=== PATIENT | female | born 1935 | race Caucasian/White ===

== ENCOUNTER 2024-09-05 20:59 | Emergency (ER) | payer OTHER, SELFPAY ==
--- NOTE | ~2024-09-05 | CT_ITS ---
CLINICAL HISTORY: head injury CT head without contrast Comparison: None Findings: Scattered subcortical and periventricular hypoattenuation, likely in keeping with chronic small vessel ischemic disease. Parenchymal volume loss with compensatory prominence of the ventricles and CSF spaces. No acute territorial infarction, intracranial hemorrhage, midline shift or hydrocephalus. Atrophy of the right temporal pole with ex vacuo dilatation of the right lateral ventricle. Empty sella is demonstrated, nonspecific. Mineralization in the basal ganglia minimal streaky calcifications along the bifrontal regions of the centrum semiovale. There is no sinus or mastoid fluid. Right lens extraction. Tortuosity of the optic nerves, nonspecific. Small left frontal scalp hematoma. No skull fracture. IMPRESSION: 1. No acute intracranial findings. 2. Additional findings as described. This document has been electronically signed by: Chong Hernandez MD on 09/05/2024 22:13:19
--- NOTE | ~2024-09-05 | CT_ITS ---
CLINICAL HISTORY: head injury CT cervical spine without contrast Comparison: None Findings: Reversal of the cervical lordosis. Osteopenia. Anterolisthesis at C2-C3, C3-C4 and C7-T1. Multilevel spondylosis with osteophytosis, uncovertebral hypertrophy, facet arthropathy and degenerative disc disease. Diffuse spinal canal narrowing, for example moderate at C6-C7 with severe bilateral foraminal stenoses, left worse than right. Degenerative changes along the right atlantodental interval with bony remodeling and calcified retro dental pannus, series 11, image 56. No acute fracture. No cervical fluid collections or masses. Calcification along the ligamentum flavum diffusely throughout. Scattered calcification along the PLL. Biapical pleural nodularity with tiny bilateral pulmonary nodules measuring no more than 5 mm. Per Fleischner criteria: Low-risk patients: No routine follow-up required. High-risk patients: Optional CT at 12 months. IMPRESSION: 1. Chronic changes without acute cervical spine fracture. 2. Additional findings as described. This document has been electronically signed by: Chong Hernandez MD on 09/05/2024 22:14:26
[2024-09-05 21:04] VITALS: BP 130/73; PULSE 78; RESP 18; TEMP 36.4; O2SAT 99; BMI 18.3
[2024-09-05 23:12] VITALS: BP 136/70; PULSE 71; RESP 16; TEMP 36.4; O2SAT 99
[2024-09-05 23:55] LABS: Appearance Urine Clear; Color Urine Yellow; Glucose Urine UA Negative (Negative); Leukocyte Esterase Urine Small (1+) (Negative); Nitrite Urine Negative (Negative); PH 5.5 (5.0-9.0); Specific Gravity - Urine >= 1.030 (1.005-1.025); UMIC TRIGGER UACC YES; Urine Blood Negative (Negative); Urine Ketones Trace mg/dL (Negative); Urine Protein Trace mg/dL (Neg-Trace)
[2024-09-05 23:57] LABS: Bacteria Urine None Seen (None Seen); Hyaline Casts Urine 0-2 /LPF (0-2); RBC Urine 0-2 /HPF (0-2); Squamous Epithelial Cell Urine 0-2 /HPF (0-2); UACC Culture Trigger YES
--- NOTE | 2024-09-06 00:23 | PC.NURSE ---
pt seen by provider, ua collected and sent.
--- NOTE | 2024-09-06 00:30 | ED_ITS ---
HPI - Head Injury General Chief complaint: Head Injury Stated complaint: fell hit head 09/05 Time Seen by Provider: 09/05/24 23:27 Source: patient and family Mode of arrival: ambulatory Limitations: no limitations History of Present Illness ED Provider: Dr. Domitila Rodriguez HPI Narrative: patient comes to the emergency room complaining of a head injury. According to the patient's family, patient was trying to sit on her couch, missed and fell on her left side of the body. Patient states that she has mild headache on the left side. Patient has history of dementia and is a poor historian. Patient states that earlier today her neck was hurting but now it is not hurting anymore. According to the patient's daughter, patient's PCP stopped blood thinners over a year ago. After the patient fell, patient's daughter and her run into the room, help her up, patient has been ambulatory and has not had any further complaints other than the localized pain in the head Related Data Allergies Allergy/AdvReac Type Severity Reaction Status Date / Time No Known Allergies Allergy Verified 09/05/24 21:08 Review of Systems Review of Systems: Constitutional : No Weight loss, No Fever, No Chills, No Night Sweats, No Fatigue, No Malaise ENT/Mouth : No Hearing loss, No Ear Pain, No Nasal Congestion, No Sinus Pain, No Hoarseness, No sore throat, No Rhinorrhea, No Swallowing Difficulty Eyes: No Eye Pain, No Swelling, No Redness, No Foreign Body, No Discharge, No Vision Changes Cardiovascular : No Chest Pain, No SOB, No Dyspnea on Exertion, No Orthopnea, No Edema, No Palpitations Respiratory : No Cough, No Sputum, No Wheezing, No Smoke Exposure, No Dyspnea Gastrointestinal : No Nausea, No Vomiting, No Diarrhea, No Constipation, No abdominal Pain, No Hematochezia, No Melena Genitourinary : no irregular bleeding, No Dysuria, No Urinary Frequency, No Hematuria, No Urinary Incontinence, No Urgency, No Flank Pain, No Urinary Flow Changes, No Hesitancy Musculoskeletal : No joint pain, No Myalgias, No Joint Swelling Skin : complaining of a bruise to the left side of the forehead Neuro : No Weakness, No Numbness, No Paresthesias, No Loss of Consciousness, No Dizziness, complaining of left-sided head pain Psych : No Anxiety/Panic, No Depression, No SI/HI/AH/VH, No Social Issues, Heme/Lymph: No Bruising, No Bleeding,No Lymphadenopathy Endocrine : No Polyuria, No Polydipsia, No Temperature Intolerance [facility] Past Medical History Medical History (Updated 09/06/24 @ 00:59 by Domitila Rodriguez MD) Hyperlipidemia Dementia Social History Social History Smoked in Last 30 Days: No Advance Directives: No Do you have a plan to hurt others: No Plan Physical Exam Vital Signs: Vital Signs: Last Vital Signs Temp 97.5 F 09/06/24 00:36 Pulse 71 09/06/24 00:36 Resp 16 09/06/24 00:36 BP 136/70 09/06/24 00:36 Pulse Ox 99 09/06/24 00:36 O2 Del Method Room Air 09/06/24 00:36 BMI result Body Mass Index 18.3 Const: Other: Appearance: Alert. Oriented X2. No acute distress. Eyes: Pupils equal, round and reactive to light. ENT: Pharynx normal. Neck: Normal inspection. Neck supple. No lymph nodes noted. No crepitus, no C- spine tenderness, normal range of motion CVS: Normal heart rate and rhythm. Pulses normal. Normal S1 and S2 Respiratory: No respiratory distress. Breath sounds normal. No Wheezing. No rales Abdomen: Soft and nontender. No rigidity. No distention. Skin: Skin warm and dry. Normal skin color. Normal skin turgor. ecchymosis on the left side of the forehead, no lacerations Extremities: No lower extremity edema. No Lacerations. No Rash Neuro: Oriented X 2. No motor deficit. No sensory deficit. Moving all extremities. No slurred speech. CN 2 through 12 grossly intact Psych: calm, cooperative, normal affect Medical Decision Making Medical Decision Making [facility] Narrative: CT scan of the head and cervical spine do not show any acute findings patient's urinalysis negative for UTI. Differential Diagnosis Differential Diagnoses: The differential diagnosis associated with the presentation includes ( UTI, mechanical fall, weakness, deconditioning) Lab Data [facility] Lab Attestation statement: I reviewed the patient's lab results. Labs: Lab Results 09/05/24 Range/Units 23:46 Urine Color Yellow Urine Appearance Clear Urine pH 5.5 (5.0-9.0) Ur Specific [place] >= 1.030 H (1.005-1.025) Urine Protein Trace (Neg-Trace) mg/dL Urine Glucose (UA) Negative (Negative) mg/dL Urine Ketones Trace (Negative) mg/dL Urine Blood Negative (Negative) Urine Nitrite Negative (Negative) Ur Leukocyte Esterase Small (1+) H (Negative) Urine RBC 0-2 (0-2) /HPF Urine WBC 6-10 H (0-5) /HPF Ur Squamous Epith Cells 0-2 (0-2) /HPF Urine Bacteria None Seen (None Seen) Hyaline Casts 0-2 (0-2) /LPF Independent Interpretation I performed an independent interpretation of an: CT Scan Radiology Impression Discussion of test interpretation with radiology: I have reviewed the radiologist's reading. Radiologist Impression: Reversal of the cervical lordosis. Osteopenia. Anterolisthesis at C2-C3, C3-C4 and C7-T1. Multilevel spondylosis with osteophytosis, uncovertebral hypertrophy, facet arthropathy and degenerative disc disease. Diffuse spinal canal narrowing, for example moderate at C6-C7 with severe bilateral foraminal stenoses, left worse than right. Degenerative changes along the right atlantodental interval with bony remodeling and calcified retro dental pannus, series 11, image 56. No acute fracture. No cervical fluid collections or masses. Calcification along the ligamentum flavum diffusely throughout. Scattered calcification along the PLL. Biapical pleural nodularity with tiny bilateral pulmonary nodules measuring no more than 5 mm. Per Fleischner criteria: Low-risk patients: No routine follow-up required. High-risk patients: Optional CT at 12 months. Scattered subcortical and periventricular hypoattenuation, likely in keeping with chronic small vessel ischemic disease. Parenchymal volume loss with compensatory prominence of the ventricles and CSF spaces. No acute territorial infarction, intracranial hemorrhage, midline shift or hydrocephalus. Atrophy of the right temporal pole with ex vacuo dilatation of the right lateral ventricle. Empty sella is demonstrated, nonspecific. Mineralization in the basal ganglia minimal streaky calcifications along the bifrontal regions of the centrum semiovale. There is no sinus or mastoid fluid. Right lens extraction. Tortuosity of the optic nerves, nonspecific. Small left frontal scalp hematoma. No skull fracture. Discharge Plan Discharge Clinical Impression: Closed head injury, Ecchymosis Patient Disposition: Home, Self-Care Instructions: Head Injury (ED), Ecchymosis (ED) Additional Instructions: Please follow-up with your primary care physician tomorrow. If you have any worsening or new symptoms, please return to the emergency room or call 911 Interventions: ED Discharge Assessment Last Done: 09/06/24 00:36 Discharge Date/Time: 09/06/24 00:37 Print Language: [place]
--- NOTE | 2024-09-06 00:33 | PC.NURSE ---
pt denies any light headedness or dizziness, pt able to answer question appropriately. Reviewed discharge instructions with pt. pt verbalized understanding, no sign of distress.
[2024-09-06 00:36] VITALS: BP 136/70; PULSE 71; RESP 16; TEMP 36.4; O2SAT 99
== END 2024-09-06 00:37 | disposition home or self-care (01) ==
PROVIDERS: Emergency Provider Emergency Medicine
DX: S09.90XA Unspecified injury of head, initial encounter (principal); S00.83XA Contusion of other part of head, initial encounter; W07.XXXA Fall from chair, initial encounter; R51.9 Headache, unspecified; Y93.89 Activity, other specified; Y92.008 Other place in unspecified non-institutional (private) residence as the place of occurrence of the external cause; Y99.9 Unspecified external cause status; F03.90 Unspecified dementia, unspecified severity, without behavioral disturbance, psychotic disturbance, mood disturbance, and anxiety; E78.5 Hyperlipidemia, unspecified
CPT/HCPCS: 70450; 72125; 81001; 87086; 99284

== ENCOUNTER → 2024-09-05 21:20 | Outpatient (BNV) | payer OTHER, MEDICAID, SELFPAY | PROVIDERS: Visit Provider Radiology Diagnostic Radiology | DX: S09.90XA Unspecified injury of head, initial encounter (principal) | CPT/HCPCS: 70450; 72125 ==